=== PATIENT | female | born 1985 | race Hispanic/Latino ===

== ENCOUNTER 2021-11-21 10:25 | Day surgery (SDC) | payer OTHER ==
[2021-11-21] MEDS ORDERED: hydrALAZINE 20 MG/ML VIAL SLOW IVP PRN (11:31)
[2021-11-21 12:03] VITALS: BMI 35.1
== END 2021-11-21 11:40 | disposition home or self-care (01) ==
LOC: CSHLD/OP 10:25
PROVIDERS: ATTEND Family Medicine
DX: Z36.83 Encounter for fetal screening for congenital cardiac abnormalities (principal); O24.414 Gestational diabetes mellitus in pregnancy, insulin controlled; Z3A.34 34 weeks gestation of pregnancy; Z88.0 Allergy status to penicillin; Z91.040 Latex allergy status
CPT/HCPCS: 59025; 76819; 99282

== ENCOUNTER 2021-12-08 10:54 | Day surgery (SDC) | payer OTHER | END 2021-12-08 13:15 | disposition home health service (06) | LOC: CSHLD/OP 10:54 | PROVIDERS: ATTEND Family Medicine | DX: Z36.83 Encounter for fetal screening for congenital cardiac abnormalities (principal) | CPT/HCPCS: 76815; 76819 ==

== ENCOUNTER 2021-12-16 09:59 | Day surgery (SDC) | payer OTHER | END 2021-12-16 12:45 | disposition home or self-care (01) | LOC: CSHLD/OP 09:59 | PROVIDERS: ATTEND Obstetrics & Gynecology | DX: O24.419 Gestational diabetes mellitus in pregnancy, unspecified control (principal); Z79.4 Long term (current) use of insulin; Z79.899 Other long term (current) drug therapy; Z88.0 Allergy status to penicillin; Z91.040 Latex allergy status; Z98.890 Other specified postprocedural states; Z01.812 Encounter for preprocedural laboratory examination; Z20.822 Contact with and (suspected) exposure to COVID-19 | CPT/HCPCS: 36415; 59025; 76819; 85025; 86780; 86900; 86901; 87340; 99281; U0002 ==

== ENCOUNTER 2025-01-28 15:10 | Emergency (ER) | payer OTHER ==
[2025-01-28 16:04] LABS: Glucose, Urine (Dipstick) >=1000 mg/dL (Negative); Leukocyte 100 (Negative); Protein, Urine (Dipstick) 30 mg/dl (Neg-Trace); Specific Gravity, Urine 1.020 (1.005-1.030)
[2025-01-28 16:07] LABS: Pregnancy Test - Urine (BHCG) Negative (Negative); Pregu Control Background? CLEAR/WHITE (CLR/WHITE); Pregu Control Bar Appear? YES (CONTROL BAR)
[2025-01-28] MEDS ORDERED: Lidocaine 1% (PF) 30 ML VIAL ONE (16:48)
[2025-01-28 17:16] LABS: Bacteria/HPF 2+ HPF (None Seen); CAUTI Indications for Culture Pelvic or flank pain
[2025-01-28 17:18] LABS: Urine Culture Reflex Yes Yes
[2025-01-28] MEDS ORDERED: Acetaminophen 500 MG TAB ONE (19:13)
[2025-01-29 01:25] LABS: Chlamydia by PCR, Vaginal Swab Not Detected (NotDetected); GC by PCR, Vaginal Swab Not Detected (NotDetected)
== END 2025-01-28 20:03 | disposition home or self-care (01) ==
LOC: CSHERS 15:10
DX: N75.1 Abscess of Bartholin's gland (principal); N39.0 Urinary tract infection, site not specified; N76.0 Acute vaginitis; B96.89 Other specified bacterial agents as the cause of diseases classified elsewhere; I10 Essential (primary) hypertension
CPT/HCPCS: 56420; 81001; 81025; 87086; 87480; 87491; 87510; 87591; 87660; J2003